=== PATIENT | female | born 1985 | race Caucasian/White ===

== ENCOUNTER 2021-03-03 13:42 | Outpatient (CLI) | payer BC, SELFPAY ==
[2021-03-03 14:50] LABS: Alanine Aminotransferase 23 U/L (14-59); Alkaline Phosphatase 44 U/L (46-116); Anion Gap 10 mmol/L (8-16); Aspartate Amino Transferase 14 U/L (15-37); Bilirubin,Total 0.4 mg/dL (0.00-1.00); Blood Urea Nitrogen 14 mg/dL (7-18); Carbon Dioxide 28 mmol/L (21-32); Chloride 106 mmol/L (98-108); Cholesterol 156 mg/dL (0-200); Estimated Glomerular Filt Rate > 60; Glucose 78 mg/dL (70-99); HDL Direct 77 mg/dL (40-60); LDL Cholesterol Calculated 70 mg/dL (<130); Osmolality Calculated 297 mOsm/kg (285-295); Potassium 4.3 mmol/L (3.5-5.1); Sodium 144 mmol/L (136-145); Total Protein 7.1 g/dL (6.4-8.2); Triglycerides 44 mg/dL (0-150)
== END 2021-03-03 13:43 | disposition home or self-care (01) ==
LOC: CHSLAB 13:45
PROVIDERS: PCP Nurse Practitioner Family; Visit Provider Nurse Practitioner Family
DX: Z00.00 Encounter for general adult medical examination without abnormal findings (principal)
CPT/HCPCS: 36415; 80053; 80061

== ENCOUNTER 2022-02-05 09:18 | Outpatient (CLI) | payer BC, SELFPAY ==
[2022-02-05 09:32] LABS: Basophils Absolute Auto 0.06 K/mm3 (0.00-0.10); Basophils Percent Auto 1.1 % (0.0-1.0); Eosinophils Absolute Auto 0.06 K/mm3 (0.02-0.50); Eosinophils Percent Auto 1.1 % (1.0-6.0); Hematocrit 37.9 % (35.0-49.0); Hemoglobin 12.2 g/dL (12.0-15.0); Lymphocytes Absolute Auto 1.44 K/mm3 (1.10-4.50); Lymphocytes Percent Auto 26.6 % (18.0-42.0); Mean Corpuscular HGB Conc 32.2 g/dL (32.0-36.0); Mean Corpuscular Hemoglobin 27.5 pg (27.0-31.0); Mean Corpuscular Volume 85.4 fL (78.0-102.0); Mean Platelet Volume 11.8 fl (9.2-11.8); Monocytes Absolute Auto 0.46 K/mm3 (0.10-0.90); Monocytes Percent Auto 8.5 % (2.0-11.0); Neutrophils Absolute Auto 3.4 K/mm3 (1.7-7.2); Neutrophils Percent Auto 62.7 % (50.0-70.0); Platelet Count Result 185 K/mm3 (150-420); Red Blood Count 4.44 M/mm3 (4.20-5.40); Red Cell Distribution Width 13.7 % (11.6-14.4); White Blood Count 5.4 K/mm3 (4.8-10.8)
[2022-02-05 10:10] LABS: Alanine Aminotransferase 19 U/L (14-59); Albumin Level 3.6 g/dL (3.4-5.0); Alkaline Phosphatase 55 U/L (46-116); Anion Gap 8 mmol/L (8-16); Aspartate Amino Transferase 16 U/L (15-37); Bilirubin,Total 0.4 mg/dL (0.00-1.00); Blood Urea Nitrogen 15 mg/dL (7-18); Calcium 8.7 mg/dL (8.5-10.1); Carbon Dioxide 26 mmol/L (21-32); Chloride 105 mmol/L (98-108); Cholesterol 159 mg/dL (0-200); Estimated Glomerular Filt Rate > 60; Glucose 88 mg/dL (70-99); HDL Direct 80 mg/dL (40-60); LDL Cholesterol Calculated 65 mg/dL (<130); Osmolality Calculated 287 mOsm/kg (285-295); Potassium 4.3 mmol/L (3.5-5.1); Sodium 139 mmol/L (136-145); Thyroid Stimulating Hormone 1.61 uIU/mL (0.36-3.74); Triglycerides 69 mg/dL (0-150)
[2022-02-11 21:04] LABS: Vitamin D 25 Hydroxy 64 ng/mL (30-100)
== END 2022-02-05 09:19 | disposition home or self-care (01) ==
LOC: CHSLAB 09:20
PROVIDERS: PCP Nurse Practitioner Family; Visit Provider Nurse Practitioner Family
DX: Z00.00 Encounter for general adult medical examination without abnormal findings (principal); R53.83 Other fatigue
CPT/HCPCS: 36415; 80053; 80061; 82306; 84443; 85025

== ENCOUNTER 2023-04-25 09:39 | Outpatient (CLI) | payer BC, SELFPAY ==
--- NOTE | ~2023-04-25 | XR_ITS ---
Lumbosacral Spine: AP and lateral views Clinical History: Pain Findings: The normal lordotic curve is maintained. The vertebral bodies and posterior elements are i ntact. There is mild degenerative disc narrowing at L5-S1. The sacroiliac joints are normally outlin ed. Impression: Mild degenerative disc narrowing at L5-S1. Reviewed, dictated and finalized at [facility]. Impression: Mild degenerative disc narrowing at L5-S1.
[2023-04-25 10:45] LABS: Alanine Aminotransferase 14 U/L (14-59); Albumin Level 3.3 g/dL (3.4-5.0); Alkaline Phosphatase 50 U/L (46-116); Anion Gap 11 mmol/L (8-16); Aspartate Amino Transferase 11 U/L (15-37); Bilirubin,Total 0.5 mg/dL (0.00-1.00); Blood Urea Nitrogen 11 mg/dL (7-18); Calcium 8.6 mg/dL (8.5-10.1); Carbon Dioxide 24 mmol/L (21-32); Chloride 106 mmol/L (98-108); Cholesterol 148 mg/dL (0-200); Estimated Glomerular Filt Rate > 60; Glucose 88 mg/dL (70-99); HDL Direct 75 mg/dL (40-60); LDL Cholesterol Calculated 61 mg/dL (<130); Osmolality Calculated 290 mOsm/kg (285-295); Potassium 4.2 mmol/L (3.5-5.1); Sodium 141 mmol/L (136-145); Total Protein 6.2 g/dL (6.4-8.2); Triglycerides 60 mg/dL (0-150)
== END 2023-04-25 09:40 | disposition home or self-care (01) ==
LOC: CHSLAB 09:42
PROVIDERS: PCP Nurse Practitioner Family; Visit Provider Nurse Practitioner Family
DX: Z00.00 Encounter for general adult medical examination without abnormal findings (principal); G89.29 Other chronic pain; Z13.6 Encounter for screening for cardiovascular disorders; M54.50 Low back pain, unspecified
CPT/HCPCS: 36415; 72100; 80053; 80061

== ENCOUNTER 2023-05-02 07:30 | Outpatient (RCR) | payer BC, SELFPAY ==
--- NOTE | 2023-05-02 08:16 | PTOPEVAL1 ---
Assessment and note entered by Akhil Barajas Evaluation Information Assessment Status Evaluation Diagnosis low back pain Onset 04/25/23 Subjective Information Pt. reports that she has had low back pain since high school. She reports that she has dealt with the pain all her life. She reports that her pain has gotten progressively worse. She reports that she can only stand for about 1/2 an hour before pain increases. 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 She reports that her pain has worsened to a point that it is affecting her sleep. She states that she undewent xray on Tuesday. She reports that she has no pain going into the l.e. She reports that her goal is to decrease her low back pain. Reported Pain Level Pain Score 2: Self Report Assessment PT Clinical Summary Pt. is a 37 year old female who enters the clinic with low back pain. She presents with abdominal weakness, proximal l.e. weakness, impaired postural awareness, impaired flexibility and pain. Continued skilled PT is indicated in order to improve these areas to allow the pt. to be able to complete all IADL's with improved comfort and efficiency. Plan of Care Interventions Electrical Stimulation,Hot Pack/Cold Pack,Manual Therapy,Mechanical Traction,Neuro Re-education, Therapeutic Activities,Therapeutic Exercise PT Services Indicated Yes Treatment Frequency and 2x/week x 8 visits Duration These treatments will address the objective and functional deficits as defined above. The patient will be advanced safely and appropriately in order for the patient to progress towards his/her prior level of function. Additional exercises will be introduced and as well as a comprehensive home exercise program upon discharge, if needed, ?to ensure carryover of functional gains achieved in the clinic. This treatment plan has been reviewed and agreement upon by the patient.
--- NOTE | 2023-05-02 08:16 | OPREHPOC ---
Outpatient Therapy Plan of Care This is a Multidisciplinary Plan of Care that may contain components documented by all disciplines (PT, OT, and ST.) PT Problem 1 PT Problem #1 Knowledge Deficit PT Goal 1 Goal Independent with a HEP addessing strength, stability and flexiblity. Target Visit 2 PT Problem 2 PT Problem #2 Pain PT Goal 1 Goal Pt. will provide subjective reports of pain levels at 2/10 at worst. Target Visit 8 PT Problem 3 PT Problem #3 Impaired Functional Mobil PT Goal 1 Goal Improve modified Oswestry score by 20% PT Problem 4 PT Problem #4 Impaired Strength PT Goal 1 Goal Pt. with 4+/5 lower and oblique abdominal strength Target Visit 8 PT Problem 5 PT Problem #5 Impaired Functional Mobil PT Goal 1 Goal Pt. will report being able to stand for 1 hour with decrease pain intensity to 2/10 Target Visit 8
--- NOTE | 2023-06-08 08:05 | OPREHPOC ---
Outpatient Therapy Plan of Care This is a Multidisciplinary Plan of Care that may contain components documented by all disciplines (PT, OT, and ST.) PT Problem 1 PT Problem #1 Knowledge Deficit PT Goal 1 Goal Independent with a HEP addessing strength, stability and flexiblity. Target Visit 2 Progress Met PT Problem 2 PT Problem #2 Pain PT Goal 1 Goal Pt. will provide subjective reports of pain levels at 2/10 at worst. Target Visit 8 Progress Not Met PT Problem 3 PT Problem #3 Impaired Functional Mobil PT Goal 1 Goal Improve modified Oswestry score by 20% Progress Not Met PT Problem 4 PT Problem #4 Impaired Strength PT Goal 1 Goal Pt. with 4+/5 lower and oblique abdominal strength Target Visit 8 Progress Not Met PT Problem 5 PT Problem #5 Impaired Functional Mobil PT Goal 1 Goal Pt. will report being able to stand for 1 hour with decrease pain intensity to 2/10 Target Visit 8 Progress Not Met
--- NOTE | 2023-06-08 08:05 | PTOPPROGNS ---
Assessment and note entered by JT File, PT Evaluation Information Assessment Status Progress Diagnosis low back pain Onset 04/25/23 Subjective Information patient reports she feels About the same today. she reports the recent addition of mechanical traction has helped. patient reports she will stand for some time and the back will get to a point it feels locked up on her. she reports when this happens she is unable to bend or move really. she even has to bring her shoes up to a bench to be tied. she reports most of her pain is associated with how much she stands through the day. if she is not active, she will have little pain. Assessment PT Clinical Summary mrs. best presents to skilled PT for her 10th skilled PT visit. she presents with continues pain in the lower back that does not radiate down the legs. she dispays greater pain with increased time standing, and less pain with sitting and rest. she has made improvement in some strength around the hips, and displays negative prone instability testing today. she has met goal for HEP performance, and has made some progress in goals for core strength and standing time til pain , but continues to lack achievement of all other goals. she would benefit from continued skilled PT to address her remaining objective/functional deficits and goals to return to pain free standing , walking, and bending activities. Plan of Care Interventions Electrical Stimulation,Hot Pack/Cold Pack,Manual Therapy,Mechanical Traction,Neuro Re-education, Therapeutic Activities,Therapeutic Exercise PT Services Indicated Yes Treatment Frequency and continue per intial POC Duration These treatments will address the objective and functional deficits as defined above. The patient will be advanced safely and appropriately in order for the patient to progress towards his/her prior level of function. Additional exercises will be introduced and as well as a comprehensive home exercise program upon discharge, if needed, ?to ensure carryover of functional gains achieved in the clinic. This treatment plan has been reviewed and agreement upon by the patient.
--- NOTE | 2023-06-28 08:18 | OPREHPOC ---
Outpatient Therapy Plan of Care This is a Multidisciplinary Plan of Care that may contain components documented by all disciplines (PT, OT, and ST.) PT Problem 1 PT Problem #1 Knowledge Deficit PT Goal 1 Goal Independent with a HEP addessing strength, stability and flexiblity. Target Visit 2 Progress Met PT Problem 2 PT Problem #2 Pain PT Goal 1 Goal Pt. will provide subjective reports of pain levels at 2/10 at worst. Target Visit 18 Progress Not Met PT Problem 3 PT Problem #3 Impaired Functional Mobil PT Goal 1 Goal Improve modified Oswestry score by 20% Target Visit 18 Progress Not Met PT Problem 4 PT Problem #4 Impaired Strength PT Goal 1 Goal Pt. with 4+/5 lower and oblique abdominal strength Target Visit 18 Progress Not Met PT Problem 5 PT Problem #5 Impaired Functional Mobil PT Goal 1 Goal Pt. will report being able to stand for 1 hour with decrease pain intensity to 2/10 Target Visit 18 Progress Not Met
--- NOTE | 2023-06-28 08:18 | PTOPREEVAL ---
Assessment and note entered by JT File, PT Evaluation Information Assessment Status Re-evaluation Diagnosis low back pain Onset 04/25/23 Subjective Information patient reports the back feels About average today. she reports the back will still lock up on her with standing. she reports she does not have radicular symptoms. she reports she sat on the bleachers a few nights ago for several hours and she was in a ton of pain that night. patient reports the past few weeks have been worse with her having to perform increased activities around the home for decoration, sitting on bleachers, and walking around with her work vest on. Reported Pain Level Pain Score 3: Self Report Assessment PT Clinical Summary mrs. best presents to skilled PT for her 12th skilled PT visit today. in therapy thus far, she has been educated in modalities for pain reduction/decreased radicular symptoms. she has also done exercises for lumbar mobility and core strength. however, she continues to lack goals for core strength, adequate pain levels for discharge , and is limited functionally in how long she can stand and walk due to her pain. she has noted some improvement in her oswestry score and strength in therapy thus far, but would benefit from continued skilled PT to address her remaining goals for skilled PT and functional activity performance/quality of life. moving forward with PT will include further core strengthening education and progress in functional activities to achieve her full goals. Plan of Care Interventions Electrical Stimulation,Hot Pack/Cold Pack,Manual Therapy,Mechanical Traction,Neuro Re-education, Therapeutic Activities,Therapeutic Exercise PT Services Indicated Yes Treatment Frequency and continue skilled PT 2x weekly for 6 more visits Duration These treatments will address the objective and functional deficits as defined above. The patient will be advanced safely and appropriately in order for the patient to progress towards his/her prior level of function. Additional exercises will be introduced and as well as a comprehensive home exercise program upon discharge, if needed, ?to ensure carryover of functional gains achieved in the clinic. This treatment plan has been reviewed and agreement upon by the patient.
== END 2023-06-28 20:00 | disposition home or self-care (01) ==
LOC: CHSPT 07:30
PROVIDERS: PCP Nurse Practitioner Family; Visit Provider Nurse Practitioner Family
DX: M54.50 Low back pain, unspecified (principal); G89.29 Other chronic pain
CPT/HCPCS: 97012; 97014; 97110; 97140; 97161; G0283

== ENCOUNTER 2024-11-21 09:02 | Outpatient (CLI) | payer OTHER, SELFPAY ==
--- OUTSIDE RECORDS SUMMARY | 2024-11-21 09:10 | XMS_ITS | Data Portability ---
Author Organization [facility] [place] Address [address] [place] [address] Care Team Providers Care Finishing Trimmer Name Role Phone MOISÉS HARRY Primary Care Provider [phone] Assessment Encounter Date Assessment Date Assessment LastModified by Organization Details LastModified Time 02/24/2022 02/24/2022 Annual gynecological exam performed. Patient will come back in a year unless there are new symptoms. [email or web address] Not available 02/24/2022 15:37:03 03/01/2023 03/01/2023 Annual gynecological exam performed. Patient will come back in a year unless there are new symptoms. [email or web address] Not available 03/01/2023 09:08:24 06/14/2024 06/14/2024 Annual gynecological exam performed. Patient will come back in a year unless there are new symptoms. [email or web address] Not available 06/14/2024 09:16:49 Plan of Treatment Reminders Order Date Submit Date Provider Last Modified By Organization Details Last Modified Time Details Appointments None recorded. Lab vitamin D, 25-hydroxy , total, serum [address] [facility] (Lab), [address], [place], [address], 4 04:24:53 TSH, serum or plasma [address] [facility] (Lab), [address], [place], [address], 4 04:24:52 lipid panel, blood [address] [facility] (Lab), [address], [place], [address], 4 04:24:51 HbA1c (hemoglobi n A1c), blood [address] [facility] (Lab), [address], [place], [address], 4 04:24:53 CMP, serum or plasma [address] [facility] (Lab), [address], [place], [address], 4 04:24:52 CBC w/ auto diff [address] [facility] (Lab), [address], [place], [address], 4 04:24:51 Referral None recorded. Procedures None recorded. Surgeries None recorded. Imaging MAMMO, screening, digital, bilateral 2023 024 [facility], [address], [address], [address], 4 04:07:48 Medication Orders Apri 0.15 mg-0.03 mg tablet 2023 024 [facility] #[id number], [address] [place], [address], 4 09:33:10 Apri 0.15 mg-0.03 mg tablet 2022 023 [facility] #[id number], [address] [place], [address], 3 09:23:13 Apri 0.15 mg-0.03 mg tablet 2021 022 [facility] #[id number], [address] [place], [address], 2 15:44:22 Patient TargetsNo targets recorded. Patient InstructionsNo instructions recorded. Reason for Referral None Reported. Results Created Date Observation Date Name Description Value Unit Range Abnormal Flag Note LastModifiedBy Organization Detail LastModifiedTime 03/01/20 23 03/01/2023 IMAGE GUIDE D PAP AND HPV REGAR DLESS image guided Pap, HPV regardless of Pap result SEE RESULT S BELOW CASE REPOR T: Cytol ogy Gynec ologi bright Repor t Case: [id number] Autho juliann ayala Provi bay: [place] Colle cted: 03/01 1314 STUDENT DEVELOPMENT DEAN Order ing Locat ion: [place] [facility] Recei evelyn: 03/02 0241 First Scree n: Machelle Byrd Speci men: Scree shayy Pap - Image d, Cervi x STATE MENT OF ADEQU ACY: Satis facto ry for evalu ation Trans forma tion zone compo nent prese nt FINAL DIAGN OSIS: Negat mery for Intra epith elial Lesio n or Ji rios (NIL) . Elect merrick padilla adam d by Machelle Byrd on 2022 at 1:06 PM ----- ----- ----- ----- ----- ----- ----- ----- ----- ----- ----- ----- ----- ----- ----- ----- ----- ---- HPV RESUL TS: HPV mRNA E6/E7 : No HPV mRNA Detec lion NOTE: This high risk HPV mRNA assay detec ts fourt een high- risk HPV types (16, 18, 31, 33, 35, 39, 45, 51, 52, 56, 58, 59, 66, 68) witho ut diffe renti ation . COMME NT: This speci men was revie wed by a Cytot echno logis t and/o r Patho logis t (as indic ated in this repor t) after evalu ation using the Thinp rep Imagi ng Syste m. CLINI BRIGHT INFOR MATIO N: Menst rual Statu s: LMP (if appli cable ): Clini bright Histo ry/Pr eviou s Pap: Type of Neopl tory (if appli cable ): Signi fican t Clini bright Findi ngs: Other Histo ry: Hormo nathaniel (if appli cable ): PAP EDUCA PAT L NOTE: The Pap Test is a scree shayy test with an inher ent false negat mery rate. Liqui d-bas ed sampl ing may decre ase, but will not elimi lyric, false negat mery resul ts. A negat mery resul t does not precl ude the prese nce and/o r devel opmen t of disea se, since the prese nce of abnor mal cells in the sampl e depen ds on the locat ion of the lesio n and sampl ing techn ique. Harlan nued regul ar scree shayy is the best metho d of cance r preve ntion . If repor lion cytol ogic findi ng do not corre late with physi bright and/o r histo rical findi ngs, furth er inves tigat ion is recom leti d, as clini bruno carvajal nted. Not Available [facility] (Lab) [address], [place], [address], 03/02/2023 14:10:56 11/02/19 24 11/02/2023 CBC W/DIF F WBC 6.2 10'3/ uL 3.5-10 .5 Not Available [facility] (Lab) [address], [place], [address], 11/03/2023 04:24:51 11/02/19 24 11/02/2023 CBC W/DIF F RBC 4.83 10'6/ uL (based on docume nted legal sex) 3.80-5 .20 Not Available [facility] (Lab) [address], [place], [address], 11/03/2023 04:24:51 11/02/19 24 11/02/2023 CBC W/DIF F HGB 12.7 g/dL (based on docume nted legal sex) 11.6-1 5.4 Not Available [facility] (Lab) [address], [place], [address], 11/03/2023 04:24:51 11/02/19 24 11/02/2023 CBC W/DIF F HCT 40.7 % (based on docume nted legal sex) 34.0-4 5.0 Not Available [facility] (Lab) [address], [place], [address], 11/03/2023 04:24:51 11/02/19 24 11/02/2023 CBC W/DIF F MCV 84.3 fL 80.0-9 9.0 Not Available [facility] (Lab) [address], [place], [address], 11/03/2023 04:24:51 11/02/19 24 11/02/2023 CBC W/DIF F MCH 26.3 pg 27.0-3 4.0 low Not Available [facility] (Lab) [address], [place], [address], 11/03/2023 04:24:51 11/02/19 24 11/02/2023 CBC W/DIF F MCHC 31.2 g/dL 32.0-3 5.5 low Not Available [facility] (Lab) [address], [place], [address], 11/03/2023 04:24:51 11/02/19 24 11/02/2023 CBC W/DIF F RDW 14.9 % 11.0-1 5.0 Not Available [facility] (Lab) [address], [place], [address], 11/03/2023 04:24:51 11/02/19 24 11/02/2023 CBC W/DIF F plt 275 10'3/ uL 150-40 0 Not Available [facility] (Lab) [address], [place], [address], 11/03/2023 04:24:51 11/02/19 24 11/02/2023 CBC W/DIF F MPV 11.3 fL 8.8-12 .1 Not Available [facility] (Lab) [address], [place], [address], 11/03/2023 04:24:51 11/02/19 24 11/02/2023 CBC W/DIF F NRBC's 0.0 % 0.0 Not Available [facility] (Lab) [address], [place], [address], 11/03/2023 04:24:51 11/02/19 24 11/02/2023 CBC W/DIF F absolute NRBCs 0.0 10'3/ uL no refere nce range establ ished Not Available [facility] (Lab) [address], [place], [address], 11/03/2023 04:24:51 11/02/19 24 11/02/2023 CBC W/DIF F neutrophils 64.8 % 34.0-7 3.0 Not Available [facility] (Lab) [address], [place], [address], 11/03/2023 04:24:51 11/02/19 24 11/02/2023 CBC W/DIF F lymphocytes 24.8 % 15.0-5 0.0 Not Available [facility] (Lab) [address], [place], [address], 11/03/2023 04:24:51 11/02/19 24 11/02/2023 CBC W/DIF F monocytes 8.1 % 1.0-15 .0 Not Available [facility] (Lab) [address] [place], [address], 11/03/2023 04:24:51 11/02/19 24 11/02/2023 CBC W/DIF F eosinophils 1.0 % 0.0-8. 0 Not Available [facility] (Lab) [address], [place], [address], 11/03/2023 04:24:51 11/02/19 24 11/02/2023 CBC W/DIF F basophils 1.0 % 0.0-2. 0 Not Available [facility] (Lab) [address] [place], [address], 11/03/2023 04:24:51 11/02/19 24 11/02/2023 CBC W/DIF F immature granulocytes 0.3 % no define d refere nce range Not Available [facility] (Lab) [address] [place], [address], 11/03/2023 04:24:51 11/02/19 24 11/02/2023 CBC W/DIF F absolute neutrophils 4.0 10'3/ uL 1.5-8. 0 Not Available [facility] (Lab) [address], [place], [address], 11/03/2023 04:24:51 11/02/19 24 11/02/2023 CBC W/DIF F absolute lymphocytes 1.5 10'3/ uL 1.0-4. 0 Not Available [facility] (Lab) [address] [place], [address], 11/03/2023 04:24:51 11/02/19 24 11/02/2023 CBC W/DIF F absolute monocytes 0.5 10'3/ uL 0.2-1. 0 Not Available [facility] (Lab) [address] [place], [address], 11/03/2023 04:24:51 11/02/19 24 11/02/2023 CBC W/DIF F absolute eosinophils 0.1 10'3/ uL 0.0-0. 6 Not Available [facility] (Lab) [address] [place], [address], 11/03/2023 04:24:51 11/02/19 24 11/02/2023 CBC W/DIF F absolute basophils 0.1 10'3/ uL 0.0-0. 3 Not Available [facility] (Lab) [address], [place], [address], 11/03/2023 04:24:51 11/02/19 24 11/02/2023 CBC W/DIF F absolute immature granulocytes 0.0 10'3/ uL 0.00-0 .10 2023 2:29 AM: P indic ates parti al resul ts on a panel have been relea sed. Addit ional resul ts will follo w. 2023 2:29 AM: This resul t has been final verif ied. No addit ional or ruggiero ed resul ts are expec lion. Not Available [facility] (Lab) [address], [place], [address], 11/03/2023 04:24:51 11/02/19 24 11/02/2023 LIPID PANEL ,AMA (LDL- CALC) total cholesterol 158 mg/dL 0-199 Not Available [facility] (Lab) [address], [place], [address], 11/03/2023 04:24:51 11/02/19 24 11/02/2023 LIPID PANEL ,AMA (LDL- CALC) triglyceride s 102 mg/dL 0-150 NCEP Refer ence Value s for Trigl yceri abel: Shanique l: <150 mg/dL Borde rline High: 150 - 199 mg/dL High: 200 - 499 mg/dL Very High: >/= 500 mg/dL Not Available [facility] (Lab) [address], [place], [address], 11/03/2023 04:24:51 11/02/19 24 11/02/2023 LIPID PANEL ,AMA (LDL- CALC) HDL cholesterol 68 mg/dL >40 Not Available [facility] (Lab) [address] [place], [address], 11/03/2023 04:24:51 11/02/1911/02/2023 LIPID PANEL ,AMA (LDL- CALC) LDL cholesterol 71 mg/dL 0-99 Cutof f value s recom leti d by the Natio nal Lexi stero l Educa tion Progr am: KIRIT ABLE: Lexi stero l <200 mg/dL LDL <100 mg/dL BORDE RLINE : Lexi stero l 200-2 39 mg/dL LDL 101-1 59 mg/dL HIGHE R RISK: Lexi stero l >240 mg/dL LDL >160 mg/dL , HDL <40 mg/dL Not Available [facility] (Lab) [address], [place], [address], 11/03/2023 04:24:51 11/02/1911/02/2023 LIPID PANEL ,AMA (LDL- CALC) non-HDL cholesterol 90 mg/dL no refere nce range A reaso nable goal for non-H DL lexi stero l is one that is 30 mg/dL highe r than the LDL lexi stero l goal. Not Available [facility] (Lab) [address], [place], [address], 11/03/2023 04:24:51 11/02/1911/02/2023 LIPID PANEL ,AMA (LDL- CALC) chol/HDL ratio 2.3 . 0.0-5. 0 On November 02, 2022, [facility] labor atori cuca ruggiero ed the equat ion for calcu latin g estim ated low-d ensit y lipop rotei n-cho leste rol (LDL- C) from the Fried vijay equat ion to the Halina n/Ros pedroza equat ion. This new equat ion is only valid for lipid panel s with trigl yceri abel < 400 mg/dL . Josei es valeri mcknighton akosuat ed that this new equat ion will impro ve the accur acy of LDL-C , espec ially in scena marino when LDL-C ani ntrat ions are relat ively low (< 100 mg/dL ), trigl yceri abel are eleva lion, or patie nt is non-f astin g. Refer ences : - Halina clark, Alex Mckeon, Demario Leung , Mohamud trevino, Felix Stark, Felix mi, Ozzy [facility] , and Geoffrey De La Garza . 2013. Comp ariso n of a Novel Metho d vs the Fried vijay Equat ion for Estim ating Low-D ensit y Lipop rotei n Lexi stero l Level s from the Stand jenny Lipid Profmontez le. JAMEE: The Journ al of the Ameri can Medic al Assoc iatio n 310 (19): 2060- . - Kina salazar V, Deborah J, Haydee salazar A, Beba M, Rossi garcia R, Robyn salazar E, Mihai [facility] RS, Frederic SR, Halina clark SS. Fast ing Versu s Nonfa sting and Low-D ensit y Lipop rotei n Lexi stero l Accur acy. Circu latio n. 2017Jul 12;137 (1):1 0-19. Not Available [facility] (Lab) [address] [place], [address], 11/03/2023 04:24:51 11/02/19 24 11/02/2023 CMP(C OMPRE HENSI VE METAB OLIC PANEL ) sodium 138 mmol/ L 133-14 6 Not Available [facility] (Lab) [address] [place], [address], 11/03/2023 04:24:52 11/02/19 24 11/02/2023 CMP(C OMPRE HENSI VE METAB OLIC PANEL ) potassium 4.6 mmol/ L 3.5-5. 1 Not Available [facility] (Lab) [address] [place], [address], 11/03/2023 04:24:52 11/02/19 24 11/02/2023 CMP(C OMPRE HENSI VE METAB OLIC PANEL ) chloride 105 mmol/ L 98-107 Not Available [facility] (Lab) [address] [place], [address], 11/03/2023 04:24:52 11/02/19 24 11/02/2023 CMP(C OMPRE HENSI VE METAB OLIC PANEL ) carbon dioxide 27 mmol/ L 21-31 Not Available [facility] (Lab) [address], [place], [address], 11/03/2023 04:24:52 11/02/19 24 11/02/2023 CMP(C OMPRE HENSI VE METAB OLIC PANEL ) anion gap 6 mmol/ L 4-13 Not Available [facility] (Lab) [address], [place], [address], 11/03/2023 04:24:52 11/02/19 24 11/02/2023 CMP(C OMPRE HENSI VE METAB OLIC PANEL ) blood urea nitrogen 15 mg/dL 7-25 Not Available [facility] (Lab) [address], [place], [address], 11/03/2023 04:24:52 11/02/19 24 11/02/2023 CMP(C OMPRE HENSI VE METAB OLIC PANEL ) creatinine 0.99 mg/dL 0.60-1 .30 Not Available [facility] (Lab) [address], [place], [address], 11/03/2023 04:24:52 11/02/19 24 11/02/2023 CMP(C OMPRE HENSI VE METAB OLIC PANEL ) egfrcr (CKD-epi 2020) 74 mL/mi n/1.7 3_m2 >=60 Not Available [facility] (Lab) [address], [place], [address], 11/03/2023 04:24:52 11/02/19 24 11/02/2023 CMP(C OMPRE HENSI VE METAB OLIC PANEL ) calcium 9.3 mg/dL 8.3-10 .5 Not Available [facility] (Lab) [address], [place], [address], 11/03/2023 04:24:52 11/02/19 24 11/02/2023 CMP(C OMPRE HENSI VE METAB OLIC PANEL ) glucose 90 mg/dL 70-100 Not Available [facility] (Lab) [address], [place], [address], 11/03/2023 04:24:52 11/02/19 24 11/02/2023 CMP(C OMPRE HENSI VE METAB OLIC PANEL ) protein, total 6.9 g/dL 6.4-8. 3 Not Available [facility] (Lab) [address] [place], [address], 11/03/2023 04:24:52 11/02/19 24 11/02/2023 CMP(C OMPRE HENSI VE METAB OLIC PANEL ) albumin 4.2 g/dL 3.5-5. 0 Not Available [facility] (Lab) [address] [place], [address], 11/03/2023 04:24:52 11/02/19 24 11/02/2023 CMP(C OMPRE HENSI VE METAB OLIC PANEL ) ALT 14 units /L 9-43 Not Available [facility] (Lab) [address] [place], [address], 11/03/2023 04:24:52 11/02/19 24 11/02/2023 CMP(C OMPRE HENSI VE METAB OLIC PANEL ) alkaline phosphatase 57 units /L 34-104 Not Available [facility] (Lab) [address] [place], [address], 11/03/2023 04:24:52 11/02/19 24 11/02/2023 CMP(C OMPRE HENSI VE METAB OLIC PANEL ) AST 17 units /L 13-39 Not Available [facility] (Lab) [address] [place], [address], 11/03/2023 04:24:52 11/02/19 24 11/02/2023 CMP(C OMPRE HENSI VE METAB OLIC PANEL ) bilirubin, total 0.3 mg/dL 0.2-1. 2 Not Available [facility] (Lab) [address] [place], [address], 11/03/2023 04:24:52 11/02/19 24 11/02/2023 TSH, REFLE X FREE T4 TSH 0.84 uIU/m L 0.30-5 .33 Not Available [facility] (Lab) [address], [place], [address], 11/03/2023 04:24:52 11/02/19 24 11/02/2023 VITAM IN D, 25-OH (TOTA L D2/D3 ) vitamin D, 25-hydroxy, total 47.9 NG/mL 30.0-1 00.0 Sugge stive of Defic iency : <20 ng/mL Sugge stive of Insuf ficie ncy: 20-29 ng/mL Sugge stive of Suffi cienc y: 30-10 0 ng/mL Sugge stive of Toxic ity: >150 ng/mL Not Available [facility] (Lab) [address], [place], [address], 11/03/2023 04:24:53 11/02/19 24 11/02/2023 HEMOG LOBIN A1C hemoglobin A1C 5.4 % 0-5.6 The Ameri can Diabe iwona Assoc iatio n recom mends that a prima ry goal of thera py kasieul d be a HBA1C of < 7% and that physi cians shoul d reeva luate the treat ment regim en in patie nts with HBA1C value s consi stent ly > 8%. <5.7% Shanique l 5.7 - 6.4% Incre ased risk for diabe iwona >=6.5 % Diagn ostic of diabe iwona <7.0% Goal of thera py >8.0% Actio n sugge sted Not Available [facility] (Lab) [address], [place], [address], 11/03/2023 04:24:53 Result Notes None recorded. Problems Name Problem SNOMED Code Status Onset Date Resolution Date Notes Provider Name and Address Organization Details Recorded Time Routine antenata l care Completed 201402/24/2022 Supervis ion of other normal pregnanc y;Record ed Elsewher e: No Locat ion: Heather radha [facility] S ource: EHR Cutting Room Supervisor jake: N Practi ce ID: [id number] Omi lable Time: 08:30:00 AM [facility] 2 15:10:12 Postpart um care Completed 201202/24/2022 Routine postpart um follow-u p;Record ed Elsewher e: No Locat ion: [facility] S ource: EHR Cutting Room Supervisor jake: N Practi ce ID: [id number] Omi lable Time: 11:30:[address] [facility] 2 15:10:12 Pregnanc y test positive [id number] Completed 201107/13/2012 Pregnanc y examinat ion or test, positive result;R ecorded Elsewher e: No Locat ion: [facility] S ource: EHR Cutting Room Supervisor jake: N Practi ce ID: [id number] Omi lable Time: 03:00:[address] [facility] 2 15:10:13 Venereal disease screenin g Completed 201402/24/2022 Screenin g examinat ion for venereal disease; Recorded Elsewher e: No Locat ion: [facility] S ource: EHR Cutting Room Supervisor jake: N Practi ce ID: [id number] Omi lable Time: 08:30:[address] [facility] 2 15:10:13 Speciali zed medical examinat ion Completed 201002/24/2022 Gynecolo gical Examinat ion;Aroldo rded Elsewher e: No Locat ion: [facility] S ource: EHR Cutting Room Supervisor jake: N Practi ce ID: [id number] Omi lable Time: 07:59:[address] [facility] 2 15:10:13 Speciali og medical examinat ion Completed 201402/24/2022 Other specifie d chlamydi al diseases ;Recorde d Elsewher e: No Locat ion: [facility] S ource: EHR Cutting Room Supervisor jake: N Johnti ce ID: [id number] Omi lable Time: 08:30:[address] [facility] 2 15:10:13 Female genital organ symptoms [id number] Completed 201107/13/2012 Unspecif ied symptom associat ed with female genital organs;R ecorded Elsewher e: No Locat ion: [facility] S ource: EHR Cutting Room Supervisor jake: N Johnmelanie ce ID: [id number] Omi lable Time: 01:45:00 PM Not Available [facility] 0 16:56:56 Ultrason ography Completed 201402/24/2022 Antenata l screenin g for malforma tion using ultrason ics;Aroldo rded Elsewher e: No Locat ion: [facility] S ource: EHR Cutting Room Supervisor jake: N Sharlene ce ID: [id number] Omi lable Time: 03:00:[address] [facility] 2 15:10:13 Antenata l screenin g Completed 201402/24/2022 Antenata l screenin g for malforma tion using ultrason ics;Aroldo rded Elsewher e: No Locat ion: [facility] S ource: EHR Cutting Room Supervisor jake: N Johnti ce ID: [id number] Omi lable Time: 03:00:[address] [facility] 2 15:10:13 Congenit al malforma tion [id number] Completed 201402/24/2022 Antenata l screenin g for malforma tion using ultrason ics;Aroldo rded Elsewher e: No Locat ion: [place] g[facility] S ource: EHR Cutting Room Supervisor jake: N Johnti ce ID: [id number] Omi lable Time: 03:00:[address] [facility] 2 15:10:13 Primigra radha [id number] Completed 201107/13/2012 Supervis ion of normal first pregnanc y;Record ed Elsewher e: No Locat ion: [place] g[place] [facility] S ource: EHR Cutting Room Supervisor jake: N Johnti ce ID: [id number] Omi lable Time: 11:00:[address] [facility] 2 15:10:12 Placenta previa with hemorrha ge - not delivere d [id number] Completed 201107/13/2012 Hemorrha ge from placenta previa, antepart um;Recor ded Elsewher e: No Locat ion: [facility] S ource: EHR Cutting Room Supervisor jake: N Johnti ce ID: [id number] Omi lable Time: 05:15:00 PM [facility] 16:56:[address] Concept Completed 201802/24/2022 Encntr for general adult medical exam w/o abnormal findings ;Recorde d Elsewher e: No Locat ion: [facility] S ource: EHR Cutting Room Supervisor jake: N Johnti ce ID: [id number] Omi lable Time: 11:30:[address] [facility] 2 15:10:13 Amenorrh ea [id number] Completed 201107/13/2012 Absence of menstrua tion;Rec orded Elsewher e: No Locat ion: [facility] S ource: EHR Cutting Room Supervisor jake: N Johnti ce ID: [id number] Omi lable Time: 01:15:[address] [facility] 2 15:10:13 Routine antenata l care Completed 201107/13/2012 Supervis ion of other normal pregnanc y;Record ed Elsewher e: No Locat ion: [place] [facility] S ource: EHR Cutting Room Supervisor jake: N Johnti ce ID: [id number] Omi lable Time: 03:00:00 PM [facility] Donald [facility] 2 15:10:12 Amenorrh ea [id number] Completed 201402/24/2022 Absence of menstrua tion;Rec orded Elsewher e: No Locat ion: [place] g[place] [facility] S ource: EHR Cutting Room Supervisor jake: N Practi ce ID: [id number] Omi lable Time: 08:30:00 AM [facility] 2 15:10:12 Screenin g for malignan t neoplasm of cervix Completed 201002/24/2022 Screenin g for malignan t neoplasm s of the cervix;R ecorded Elsewher e: No Locat ion: [place] [facility] S ource: EHR Cutting Room Supervisor jake: N Johnti ce ID: [id number] Omi lable Time: 07:59:00 AM [facility] 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 2 15:10:13 Nausea and vomiting [id number] Completed 201102/24/2022 Nausea with vomiting ;Practic e ID: [id number] [facility] Donald [facility] 2 15:10:13 anatomy study Completed 201102/24/2022 SCRN ANATMC SURVEY;P ractice ID: [id number] [facility] Donald [facility] 2 15:10:13 Primigra radha [id number] Completed 201102/24/2022 Supervis ion of normal first pregnanc y;Practi ce ID: [id number] [facility] 2 15:10:12 anatomy study Completed 201107/13/2012 SCRN ANATMC SURVEY;R ecorded Elsewher e: No [facility]at [facility]: EHR Cutting Room Supervisor jake: N Practi ce ID: [id number] Omi lable Time: 04:00:[address] [facility] 2 15:10:13 Known OR suspecte d abnormal ity affectin g manageme nt of mother Completed 201402/24/2022 Other known or suspecte d abnormal ity, not elsewher e classifi ed, affectin g manageme nt of mother, antepart um conditio n or complica tion;Rec orded Elsewher e: No Locat ion[facility]: EHR Cutting Room Supervisor jake: N Practi ce ID: [id number] Omi lable Time: 08:15:[address] [facility] 2 15:10:13 Complica tion related to pregnanc y Completed 201107/13/2012 Antepart um edema or excessiv e weight gain;Rec orded Elsewher e: No Locat ion[facility]: EHR Cutting Room Supervisor jake: N Practi ce ID: [id number] Omi lable Time: 09:15:00 AM Not Available [facility] 0 16:57:00 [place] [id number] Completed 201402/24/2022 [place] h[place];Recor ded Elsewher e: No [facility]at ion: [facility] [facility] ource: EHR Cutting Room Supervisor jake: N Practi ce ID: [id number] Omi lable Time: 08:30:[address] [facility] 2 15:10:13 Pregnanc y test positive [id number] Completed 201402/24/2022 Positive Pregnanc y Test;Pra ctice ID: [id number] Hortensia Donald [facility], [facility] 2 15:10:13 Delivery normal [id number] Completed 201402/24/2022 NORMAL DELIVERY ;Practic e ID: [id number] Hortensia Donald [facility], [facility] 2 15:10:13 Single live from destino n pregnanc y [id number] Completed 201402/24/2022 DELIVER- SINGLE LIVEBORN ;Practic e ID: [id number] [facility] 2 15:10:13 Problem Notes None recorded. Procedures Surgical History Date Name Laterality Status Provider Name and Address Organization Details Recorded Time 03/01/20 23 Date of Last Pap Smear completed [facility] 11/02/2023 09:21:51 07/11/19 15 operative procedure on knee completed [facility] 10/26/2019 17:45:34 05/13/20 11 laser assisted in situ keratomileusis completed [facility] 11/03/2023 10:39:37 06/29/20 04 Knee arthroscopy/surger y completed [facility] 11/03/2023 10:39:13 05/04/20 01 Knee arthroscopy/surger y completed [facility] 11/03/2023 10:39:18 Imaging Results None recorded. Procedure Notes None recorded. Medical Equipment None Reported. Allergies No known drug allergies Medications Name Sig Start Date Stop Date Status Note LastModified by Organization Details LastModified Time doxycycli ne hyclate 100 mg capsule TAKE 1 CAPSULE TWICE DAILY ON DAY 1, THEN 1 CAPSULE DAILY 06/14 completed Not Available Not Available Not Available Apri 0.15 mg-0.03 mg tablet TAKE 1 TABLET BY MOUTH EVERY DAY 2023 active Not Available Not Available Not Avai lable azithromy kimberli 250 mg tablet TAKE 2 TABLETS BY MOUTH TODAY, THEN TAKE 1 TABLET DAILY FOR 4 DAYS 03/01 completed Not Available Not Available Not Available Lidocaine Viscous 2 % mucosal solution 10/28 completed Not Available Not Available Not Available benzonata te 200 mg capsule TAKE 1 CAPSULE BY MOUTH TWICE DAILY NEEDED FOR COUGH 03/01 completed Not Available Not Available Not Available prednison e 20 mg tablet TAKE 2 TABLETS BY MOUTH ONCE DAILY 03/01 completed Not Available Not Available Not Available acetamino phen 300 mg-codein e 30 mg tablet 06/14 completed Not Available Not Available Not Available Reglan 10 mg tablet take 1 tablet (10MG) by oral route every 6 hours as needed for nausea/ vomiting 10/04 completed Prescrib ed Elsewher e: No Locat ion: [facility] By: poly cerda DateTime : [id number]||2024-11-21 09:46:00|MM_ITS|BURKT|Imaging|[id number]|"EXAMINATION: MM screening gregorio BI w julio HISTORY: Screening TECHNIQUE: Craniocaudal and mediolateral oblique 3-D tomosynthesis images were obtained and synthetic 2-D images were generated. CAD analysis was submitted and interpreted. COMPARISON: No prior mammogram is available for comparison at this institution. BREAST PARENCHYMAL COMPOSITION: Dense: The breasts are extremely dense, which lowers the sensitivity of mammography. FINDINGS: There is no evidence of suspicious mass, calcification, or architectural distortion to sugg est malignancy in either breast. There has been no suspicious interval change. IMPRESSION: 1. No mammographic evidence of malignancy. 2. Recommend routine screening mammography in one year. BI-RADS Category 1: Negative Reviewed, dictated and finalized at location A. IMPRESSION: 1. No mammographic evidence of malignancy. 2. Recommend routine screening mammography in one year. BI-RADS Category 1: Negative "
== END 2024-11-21 09:03 | disposition home or self-care (01) ==
LOC: ANHIMG 09:04
PROVIDERS: PCP Nurse Practitioner Family; Visit Provider Student in an Organized Health Care Education/Training Program
DX: Z12.31 Encounter for screening mammogram for malignant neoplasm of breast (principal)
CPT/HCPCS: 77063; 77067